=== PATIENT | male | born 1970 | race Caucasian/White ===

== ENCOUNTER → 2024-02-14 14:41 | Outpatient (CLI) | payer SELFPAY ==
--- NOTE | 2024-02-14 14:56 | DI.RAD.S_ITS ---
PROCEDURE: XR CHEST 2V INDICATIONS: NICOTINE DEP TECHNIQUE: 2 views of the chest were acquired. COMPARISON: None. FINDINGS: Surgical changes and devices: None. Lungs and pleura: Lungs are clear. No pleural effusions or pneumothorax. Mediastinum: Mediastinal contours are normal. Heart size is normal. Bones and chest wall: No suspicious bony abnormalities. Soft tissues appear unremarkable. IMPRESSION: No acute cardiopulmonary pathology. Dictated by: Zachary Hawk M.D. on 02/14/2024 at 20:28 Approved by: Zachary Hawk M.D. on 02/14/2024 at 20:28
== END ==
PROVIDERS: PCP Physician Assistant; Referring Provider Physician Assistant Medical; Visit Provider Physician Assistant Medical
DX: R05.9 Cough, unspecified (principal); F17.210 Nicotine dependence, cigarettes, uncomplicated
CPT/HCPCS: 71046